=== PATIENT | male | born 1985 | race African-American/Black ===

== ENCOUNTER 2017-10-22 09:02 | Inpatient (IN) | payer OTHER ==
[2017-10-22 09:44] VITALS: BMI 29.2
--- NOTE | 2017-10-22 10:57 | HP ---
CIWA Score - CIWA Score Nausea/Vomitin Muscle Tremors: 3 Anxiety: 3 Agitation: 3 Paroxysmal Sweats: 3 Orientation: 0-Oriented Tacttile Disturbances: 2-Mild Itch/Numbness/Burn Auditory Disturbances: 0-None Visual Disturbances: 0-None Headache: 1-Very Mild CIWA-Ar Total Score: 18 Admission ROS BHS - HPI Chief Complaint: "I am trying to get help for this alcohol situation" Allergies/Adverse Reactions: Allergies Allergy/AdvReac Type Severity Reaction Status Date / Time No Known Allergies Allergy Verified 10/22/17 09:53 History of Present Illness: Pt is a 32 y/o male with a long history of alcohol addiction presents today for help detox. This is first's visit to [facility] but has been in previous detox centers. Endorses a one yr sober period in 2013 when he was in a treatment program. Pt came today from [facility] where he was seen for alcohol related issues. Pt has a hx of depression, anxiety, panic d/o, insomnia for which he states he sees a psychiatrist and is on meds, although he has not had the meds since August. Denies past SI/attemt, currently denies same. Exam Limitations: No Limitations - Ebola screening Have you traveled outside of the country in the last 21 days: No (N) Have you had contact with anyone from an Ebola affected area: No Have you been sick,other than usual withdrawal symptoms: No Do you have a fever: No - Review of Systems Constitutional: Chills, Diaphoresis, Loss of Appetite, Changes in sleep, Unintentional Wgt. Loss EENT: reports: No Symptoms Reported Respiratory: reports: Shortness of Breath (No use of accessory muscles, making complete sentences at this time.) Cardiac: reports: Lightheadedness GI: reports: Nausea, Poor Appetite : reports: No Symptoms Reported Musculoskeletal: reports: No Symptoms Reported Integumentary: reports: No Symptoms Reported Neuro: reports: Headache (slight) Endocrine: reports: Unexplained Weight Loss Hematology: reports: No Symptoms Reported Psychiatric: reports: Mood/Affect Appropiate, Orientated x3 Other Systems: Reviewed and Negative Patient History - Patient Medical History Hx Anemia: No Hx Asthma: No Hx Chronic Obstructive Pulmonary Disease (COPD): No Hx Cancer: No Hx Cardiac Disorders: No Hx Congestive Heart Failure: No Hx Hypertension: No Hx Hypercholesterolemia: No Hx Pacemaker: No HX Cerebrovascular Accident: No Hx Seizures: No (Not sure he had) Hx Dementia: No Hx Diabetes: No Hx Gastrointestinal Disorders: No Hx Liver Disease: No Hx Genitourinary Disorders: No Hx Sexually Transmitted Disorders: Yes (CHLAMYDIA TREATED 2015) Hx Renal Disease (ESRD): No Hx Thyroid Disease: No Hx Human Immunodeficiency Virus (HIV): No Hx Hepatitis C: No Hx Depression: Yes Hx Suicide Attempt: No Hx Schizophrenia: No - Patient Surgical History Past Surgical History: No Hx Neurologic Surgery: No Hx Cataract Extraction: No Hx Cardiac Surgery: No Hx Lung Surgery: No Hx Breast Surgery: No Hx Breast Biopsy: No Hx Abdominal Surgery: No Hx Appendectomy: No Hx Cholecystectomy: No Hx Genitourinary Surgery: No Hx Section: No Hx Orthopedic Surgery: Yes (B/L FOOT SURGERY 2013) Hx Hysterectomy: No Anesthesia Reaction: No - PPD History Previous Implant?: Yes Documented Results: Negative w/o proof Implanted On Prior R Admission?: No Date: 10/22/17 PPD to be Administered?: Yes - Reproductive History Patient is a Female of Child Bearing Age (11 -55 yrs old): No - Smoking Cessation Smoking history: Current every day smoker Have you smoked in the past 12 months: Yes Aproximately how many cigarettes per day: 10 Hx Chewing Tobacco Use: No Initiated information on smoking cessation: Yes 'Breaking Loose' booklet given: 10/22/17 - Substance & Tx. History Hx Alcohol Use: Yes Hx Substance Use: No Substance Use Type: Alcohol - Substances Abused Alcohol Route: Oral Frequency: 3-6 times per week Amount used: 4 pints of vodka Age of first use: 20 Date of Last Use: 10/21/17 Family Disease History - Family Disease History Family Disease History: Other: Father, Mother (Anemia, HYN), Sister (Asthma) Admission Physical Exam BHS - Vital Signs Vital Signs: Vital Signs - 24 hr 10/22/17 09:43 Temperature 97.9 F Pulse Rate 66 Respiratory 18 Rate Blood Pressure 129/95 - Physical General Appearance: Yes: Mild Distress HEENTM: Yes: Within Normal Limits Respiratory: Yes: No Respiratory Distress, No Accessory Muscle Use Neck: Yes: Within Normal Limits Breast: Yes: Breast Exam Deferred Cardiology: Yes: Regular Rhythm, Regular Rate Abdominal: Yes: Within Normal Limits, Non Tender, Soft Genitourinary: Yes: Within Normal Limits Back: Yes: Normal Inspection Musculoskeletal: Yes: full range of Motion, Gait Steady Extremities: Yes: Normal Capillary Refill, Normal Inspection Neurological: Yes: Within Normal Limits, Motor Strength 5/5 Integumentary: Yes: Within Normal Limits Lymphatic: Yes: Within Normal Limits - Diagnostic (1) Alcohol dependence with uncomplicated withdrawal Current Visit: Yes Status: Acute (2) Nicotine dependence Current Visit: Yes Status: Acute (3) Anxiety Current Visit: Yes Status: Acute Cleared for Admission [facility] - Detox or Rehab [facility] Level of Care: Medically Managed Detox Regimen/Protocol: Librium [facility] Breath Alcohol Content Breath Alcohol Content: 0 Urine Drug Screen - Results Drug Screen Negative: No Urine Drug Screen Results: BZO-Benzodiazepines
[2017-10-22] MEDS ORDERED: guaiFENesin/D-METHORPHAN HB 10 ML UNIT-DOSE CUPS PO PRN (11:21)
[2017-10-22] MEDS ORDERED: LOPERAMIDE HCL 2 MG CAPSULE PO PRN (11:21)
[2017-10-22] MEDS ORDERED: chlordiazePOXIDE HCL 25 MG CAPSULE PO PRN (11:21)
[2017-10-22] MEDS ORDERED: MAGNESIUM CITRATE 300 ML BOTTLE PO PRN (11:21)
[2017-10-22] MEDS ORDERED: IBUPROFEN 400 MG TABLET (FP) PO PRN (11:21)
[2017-10-22] MEDS ORDERED: MENTHOL/PHENOL 1 EACH UD MM PRN (11:21)
[2017-10-22] MEDS ORDERED: MAG HYDROX/AL HYDROX/SIMETH 30 ML UNIT-DOSE CUP PO PRN (11:21)
[2017-10-22] MEDS ORDERED: P-EPHED 60MG/TRIPROLIDI 2.5MG TABLET PO PRN (11:21)
[2017-10-22] MEDS ORDERED: ACETAMINOPHEN 325 MG TABLET (FP) PO PRN (11:21)
[2017-10-22] MEDS ORDERED: NICOTINE POLACRILEX 2 MG GUM BUC PRN (11:21)
[2017-10-22] MEDS ORDERED: MAGNESIUM HYDROX 2400MG/30ML ORAL SUSPENSION 30 ML CUP PO PRN (11:21)
[2017-10-22] MEDS ORDERED: hydrOXYzine PAMOATE 50 MG CAPSULE (FP) PO PRN (11:21)
--- NOTE | 2017-10-22 12:26 | PN ---
BHS Progress Note Note: Nicotine patch not ordered because pt stated he does not need it.
[2017-10-22] MEDS: chlordiazePOXIDE HCL 25 MG CAPSULE PO SCH ×3 (12:43→22:15)
[2017-10-22 20:39] LABS: URINE APPEARANCE CLOUDY; URINE BILIRUBIN NEGATIVE (<2.0 mg/dL); URINE COLOR YELLOW; URINE GLUCOSE (UA) NEGATIVE (NEGATIVE); URINE KETONE NEGATIVE (NEGATIVE); URINE LEUK ESTERASE NEGATIVE (NEGATIVE); URINE NITRITE NEGATIVE (NEGATIVE); URINE PROTEIN NEGATIVE (NEGATIVE)
[2017-10-22] MEDS ORDERED: MELATONIN 5 MG TABLETS PO PRN (22:00)
[2017-10-22] MEDS: THIAMINE HCL 100 MG TABLET (FP) PO SCH (22:15)
[2017-10-23] MEDS: chlordiazePOXIDE HCL 25 MG CAPSULE PO SCH ×4 (06:01→22:11)
[2017-10-23 10:16] LABS: HEMATOCRIT 37.8 % (35.4-49); HEMOGLOBIN 12.3 GM/dL (11.7-16.9); MCH 31.5 pg (25.7-33.7); MCHC 32.7 g/dl (32.0-35.9); MEAN CELL VOLUME 96.4 fl (80-96); MEAN PLT VOLUME 8.2 fl (7.5-11.1); PLATELET COUNT 154 K/MM3 (134-434); RBC 3.92 M/mm3 (4.00-5.60); RDW 13.8 % (11.9-15.9); WHITE BLOOD COUNT 2.4 K/mm3 (4.0-10.0)
[2017-10-23] MEDS: PRENATAL VITAMINS W/ FOLIC ACID TABLET (FP) PO SCH (10:17)
[2017-10-23 11:05] LABS: ALBUMIN 3.1 g/dl (3.4-5.0); ANION GAP 9 MMOL/L (8-16); BLOOD UREA NITROGEN 9 mg/dL (7-18); CALCIUM 8.8 mg/dL (8.5-10.1); CHLORIDE 105 mmol/L (98-107); CO2 28 mmol/L (21-32); GLUCOSE,RANDOM 117 mg/dL (74-106); SGOT/AST 18 U/L (15-37); SGPT/ALT 23 U/L (12-78); SODIUM 142 mmol/L (136-145)
[2017-10-23 11:06] LABS: BILIRUBIN,TOTAL 0.6 mg/dL (0.2-1.0); TOT PROT 6.5 g/dl (6.4-8.2)
--- NOTE | 2017-10-23 11:06 | PN ---
[facility] CIWA - CIWA Score Nausea/Vomitin-No Nausea/No Vomiting Muscle Tremors: 4-Moderate,w/Arms Extend Anxiety: 4-Mod. Anxious/Guarded Agitation: 4-Moderately Restless Paroxysmal Sweats: 1-Minimal Palms Moist Orientation: 0-Oriented Tacttile Disturbances: 0-None Auditory Disturbances: 0-None Visual Disturbances: 0-None Headache: 0-None Present CIWA-Ar Total Score: 13 S Progress Note (SOAP) Subjective: ANXIETY,SWEATS/CHILLS, FATIGUE. Objective: 10/23/17 11:06 Vital Signs 10/23/17 10/23/17 10/23/17 03:30 05:57 09:15 Temperature 97.0 F L 98.6 F Pulse Rate 69 57 L Respiratory 18 18 18 Rate Blood Pressure 104/72 101/71 Laboratory Tests 10/22/17 10/23/17 15:42 07:00 WBC 2.4 L RBC 3.92 L Hgb 12.3 Hct 37.8 MCV 96.4 H MCH 31.5 MCHC 32.7 RDW 13.8 Plt Count 154 MPV 8.2 Urine Color Yellow Urine Appearance Cloudy Urine pH 7.0 Ur Specific [place] 1.016 Urine Protein Negative Urine Glucose (UA) Negative Urine Ketones Negative Urine Blood Negative Urine Nitrite Negative Urine Bilirubin Negative Urine Urobilinogen 2.0 Ur Leukocyte Esterase Negative OTHER LABS PENDING Assessment: 10/23/17 11:06 WITHDRAWAL SX Plan: CONTINUE DETOX INCREASE PO FLUIDS
[2017-10-23 11:10] LABS: ALK PHOS 31 U/L (45-117); CREATININE 0.7 mg/dL (0.7-1.3)
--- NOTE | 2017-10-23 16:33 | EKG ---
Test Reason : Blood Pressure : / mmHG Vent. Rate : 058 BPM Atrial Rate : 058 BPM P-R Int : 112 ms QRS Dur : 092 ms QT Int : 454 ms P-R-T Axes : 024 030 012 degrees QTc Int : 445 ms SINUS BRADYCARDIA T WAVE ABNORMALITY, CONSIDER ANTERIOR ISCHEMIA ABNORMAL ECG NO PREVIOUS ECGS AVAILABLE Confirmed by Kaushal Natarajan ([id number]) on 10/23/2017 4:32:51 PM Referred By: Confirmed By:Kaushal Natarajan
--- NOTE | 2017-10-23 17:51 | CONSULT ---
[facility] Psychiatric Consult - Data Date of interview: 10/23/17 Admission source: [facility] Identifying data: [facility] admission [facility] for this 32 y/o AA male, self- referred for detoxification treatment (alcohol dependence).Patient is single,a father of two,homeless,unemployed (lost his job two weeks ago) and currently without income. Substance Abuse History: Confirmed by the patient in this sesion.Details in current [facility] report : Smoking history: Current every day smoker. Have you smoked in the past 12 months: Yes. Aproximately how many cigarettes per day: 10. Hx Chewing Tobacco Use: No. Initiated information on smoking cessation: Yes. 'Breaking Loose' booklet given: 10/22/17. - Substance & Tx. History. Hx Alcohol Use: Yes. Hx Substance Use: No. Substance Use Type: Alcohol. - Substances Abused. Alcohol. Route: Oral. Frequency: 3-6 times per week. Amount used: 4 pints of vodka. Age of first use: 20. Date of Last Use: Medical History: No report of medical problems. Psychiatric History: Patient denies history of psychiatric hospitalizations.Diagnosed with MDD and Anxiety Disorder.Mr Иван hackett used to attend the [facility] in the [place] (2008).He is currently seeing a psychiatrist in [facility] for therapy + medication management ( klonopin and sertraline 150 mg/day).Has not taken medications (reporytedly stolen) for past four weeks because he lost his belongings (patient resides in shelters).Patient denies history of suicide attempts. Physical/Sexual Abuse/Trauma History: Heavy social stressors : legal difficulties,being on probation,estrangement for relatives,loss of employment, homelessness,lack of marketable vocational skills and absence of a support network. Additional Comment: Urine Drug Screen Results: BZO-Benzodiazepines.Noted. Mental Status Exam - Mental Status Exam Alert and Oriented to: Time, Place, Person Cognitive Function: Good Patient Appearance: Well Groomed (noted scar on right cheek) Mood: Sad, Withdrawn, Anxious, Apprehensive Affect: Appropriate Patient Behavior: Fatigued, Appropriate, Cooperative Speech Pattern: Clear Voice Loudness: Normal Thought Process: Intact, Goal Oriented Thought Disorder: Not Present Hallucinations: Denies Suicidal Ideation: Denies Homicidal Ideation: Denies Insight/Judgement: Fair Sleep: Fair Appetite: Good Muscle strength/Tone: Normal Gait/Station: Normal Psychiatric Findings - Problem List ([place] 1, 2,3) (1) Alcohol dependence with uncomplicated withdrawal Current Visit: Yes Status: Acute (2) Nicotine dependence Current Visit: Yes Status: Acute Qualifiers: Nicotine product type: cigarettes Substance use status: in withdrawal Qualified Code(s): F17.213 - Nicotine dependence, cigarettes, with withdrawal (3) Substance induced mood disorder Current Visit: Yes Status: Acute (4) Depressive disorder Current Visit: Yes Status: Chronic Comment: Self-report. (5) Insomnia Current Visit: Yes Status: Acute - Initial Treatment Plan Initial Treatment Plan: Psychoeducation.Sleep hygiene.Detoxification in progress.Medications : zoloft 100 mg po daily + ambien 10 mg po hs prn.Side effects/benefits of both drugs are discussed with the patient.Made aware of the risk of sexual dysfunction,suicidal ideation and parasomnias.Mr Иван hackett insists on resuming sertraline and addressing his insomnia.Agrees to the proposed plan of care.Observation.
[2017-10-23] MEDS ORDERED: ZOLPIDEM TARTRATE 10 MG TABLET (PARK CARE ONLY) PO PRN (22:00)
[2017-10-23] MEDS: THIAMINE HCL 100 MG TABLET (FP) PO SCH (22:11)
[2017-10-24] MEDS: chlordiazePOXIDE HCL 25 MG CAPSULE PO SCH (05:34)
[2017-10-24 09:11] VITALS: BP 118/83; PULSE 60; TEMP 96.7
[2017-10-24] MEDS ORDERED: SERTRALINE HCL 50 MG TABLET (FP) PO SCH (10:00)
[2017-10-24] MEDS: PRENATAL VITAMINS W/ FOLIC ACID TABLET (FP) PO SCH (10:17)
[2017-10-24] MEDS ORDERED: chlordiazePOXIDE 5 MG CAPSULE PO SCH (11:00)
--- NOTE | 2017-10-24 12:17 | PN ---
[facility] Progress Note Note: PT DECLINED TO CONTINUE WITH DETOX FOR PERSONAL REASONS STATING HE HAS TO GO TO COURT IN THE MORNING. ALERT O X 3. NAD. ALL EFFORTS TO ENCOURAGE TREATMENT WAS UNSUCCESSFUL. COUNSELOR ODALYS ADORNO SPOKE TO THE PATIENT RE: AFTERCARE REFERRAL. Vital Signs 10/24/17 10/24/17 06:25 09:10 Temperature 97.0 F L 96.7 F L Pulse Rate 68 60 Respiratory 18 18 Rate Blood Pressure 115/85 118/83 Laboratory Tests 10/22/17 10/23/17 10/23/17 15:42 07:00 07:00 WBC 2.4 L RBC 3.92 L Hgb 12.3 Hct 37.8 MCV 96.4 H MCH 31.5 MCHC 32.7 RDW 13.8 Plt Count 154 MPV 8.2 Sodium Potassium Chloride Carbon Dioxide Anion Gap BUN Creatinine Creat Clearance w eGFR Random Glucose Calcium Total Bilirubin AST ALT Alkaline Phosphatase Total Protein Albumin Urine Color Yellow Urine Appearance Cloudy Urine pH 7.0 Ur Specific [place] 1.016 Urine Protein Negative Urine Glucose (UA) Negative Urine Ketones Negative Urine Blood Negative Urine Nitrite Negative Urine Bilirubin Negative Urine Urobilinogen 2.0 Ur Leukocyte Esterase Negative RPR Titer HIV 1&2 Antibody Screen Negative HIV P24 Antigen Negative 10/23/17 10/23/17 07:00 07:00 WBC RBC Hgb Hct MCV MCH MCHC RDW Plt Count MPV Sodium 142 Potassium 4.0 Chloride 105 Carbon Dioxide 28 Anion Gap 9 BUN 9 Creatinine 0.7 Creat Clearance w eGFR > 60 Random Glucose 117 H Calcium 8.8 Total Bilirubin 0.6 AST 18 ALT 23 Alkaline Phosphatase 31 L Total Protein 6.5 Albumin 3.1 L Urine Color Urine Appearance Urine pH Ur Specific [place] Urine Protein Urine Glucose (UA) Urine Ketones Urine Blood Urine Nitrite Urine Bilirubin Urine Urobilinogen Ur Leukocyte Esterase RPR Titer Nonreactive HIV 1&2 Antibody Screen HIV P24 Antigen NAD PLAN: PT SIGNED OUT AMA
--- NOTE | 2017-10-24 12:19 | DS ---
[facility] Detox Discharge Summary Admission Date: 10/22/17 Discharge Date: 10/24/17 - History Present History: Alcohol Dependence Additional Comments: PT SIGNED OUT AMA. ALERT O X 3. NAD. Pertinent Past History: PLEASE SEE DX BELOW - Physical Exam Results Vital Signs: Vital Signs Temperature 96.7 F L 10/24/17 09:10 Pulse Rate 60 10/24/17 09:10 Respiratory Rate 18 10/24/17 09:10 Blood Pressure 118/83 10/24/17 09:10 O2 Sat by Pulse Oximetry (%) Pertinent Admission Physical Exam Findings: WITHDRAWAL SX Laboratory Tests 10/22/17 10/23/17 10/23/17 15:42 07:00 07:00 WBC 2.4 L RBC 3.92 L Hgb 12.3 Hct 37.8 MCV 96.4 H MCH 31.5 MCHC 32.7 RDW 13.8 Plt Count 154 MPV 8.2 Sodium Potassium Chloride Carbon Dioxide Anion Gap BUN Creatinine Creat Clearance w eGFR Random Glucose Calcium Total Bilirubin AST ALT Alkaline Phosphatase Total Protein Albumin Urine Color Yellow Urine Appearance Cloudy Urine pH 7.0 Ur Specific [place] 1.016 Urine Protein Negative Urine Glucose (UA) Negative Urine Ketones Negative Urine Blood Negative Urine Nitrite Negative Urine Bilirubin Negative Urine Urobilinogen 2.0 Ur Leukocyte Esterase Negative RPR Titer HIV 1&2 Antibody Screen Negative HIV P24 Antigen Negative 10/23/17 10/23/17 07:00 07:00 WBC RBC Hgb Hct MCV MCH MCHC RDW Plt Count MPV Sodium 142 Potassium 4.0 Chloride 105 Carbon Dioxide 28 Anion Gap 9 BUN 9 Creatinine 0.7 Creat Clearance w eGFR > 60 Random Glucose 117 H Calcium 8.8 Total Bilirubin 0.6 AST 18 ALT 23 Alkaline Phosphatase 31 L Total Protein 6.5 Albumin 3.1 L Urine Color Urine Appearance Urine pH Ur Specific [place] Urine Protein Urine Glucose (UA) Urine Ketones Urine Blood Urine Nitrite Urine Bilirubin Urine Urobilinogen Ur Leukocyte Esterase RPR Titer Nonreactive HIV 1&2 Antibody Screen HIV P24 Antigen - Treatment Hospital Course: Discharged Condition Good - Medication Discharge Medications: Ambulatory Orders Sertraline HCl [Zoloft -] 150 mg PO DAILY 10/22/17 clonazePAM [Klonopin -] 0.5 mg PO TID 10/22/17 - Diagnosis (1) Alcohol dependence with uncomplicated withdrawal Status: Acute (2) Nicotine dependence Status: Acute Qualifiers: Nicotine product type: cigarettes Substance use status: in withdrawal Qualified Code(s): F17.213 - Nicotine dependence, cigarettes, with withdrawal - AMA Did Patient Leave Against Medical Advice: Yes (AMA)
[2017-10-24] MEDS ORDERED: chlordiazePOXIDE HCL 10 MG CAPSULE PO SCH (23:00)
[2017-10-25] MEDS ORDERED: chlordiazePOXIDE HCL 10 MG CAPSULE PO SCH (11:00)
== END 2017-10-24 12:01 | disposition left against medical advice (07) | DRG 770 ==
LOC: YASAS 09:02 → Y3N 12:01
PROC: HZ2ZZZZ Detoxification Services for Substance Abuse Treatment (ICD-10-PCS; principal; 2017-10-22)
DX: F10.230 Alcohol dependence with withdrawal, uncomplicated (principal); F17.210 Nicotine dependence, cigarettes, uncomplicated; F19.24 Other psychoactive substance dependence with psychoactive substance-induced mood disorder; F33.9 Major depressive disorder, recurrent, unspecified; F41.9 Anxiety disorder, unspecified; G47.00 Insomnia, unspecified; Z86.19 Personal history of other infectious and parasitic diseases
CPT/HCPCS: 36415; 80053; 81003; 85027; 86593; 87389; 93005; 93010

== ENCOUNTER 2017-11-30 09:43 | Inpatient (IN) | payer OTHER ==
[2017-11-30 10:24] VITALS: BMI 29.1
--- NOTE | 2017-11-30 11:01 | HP ---
CIWA Score - CIWA Score Nausea/Vomitin Muscle Tremors: 2 Anxiety: 2 Agitation: 2 Paroxysmal Sweats: 1-Minimal Palms Moist Orientation: 0-Oriented Tacttile Disturbances: 1-Very Mild Itch/Numbness Auditory Disturbances: 1-Very Mild Visual Disturbances: 1-Very Mild Sensitivity Headache: 2-Mild CIWA-Ar Total Score: 14 Admission ROS BHS - HPI Chief Complaint: i need help to stop drinking alcohol Allergies/Adverse Reactions: Allergies Allergy/AdvReac Type Severity Reaction Status Date / Time No Known Allergies Allergy Verified 11/30/17 10:29 History of Present Illness: this 32 years old male with alcohol dependence,seeking detox,on probation,seen at [facility] last night, black out anxiety,depression,panic attack refer from [facility] for detox longest period of sobriety 6 months fx left jaw fx of right knee at age of 10 years fx of 2nd digit,4th digit,5th digit in 2013 last detox 10/22/17 to 10/24/17 not completed Exam Limitations: No Limitations - Ebola screening Have you traveled outside of the country in the last 21 days: No Have you had contact with anyone from an Ebola affected area: No Have you been sick,other than usual withdrawal symptoms: No Do you have a fever: No - Review of Systems Constitutional: Loss of Appetite, Malaise, Night Sweats, Changes in sleep, Weakness EENT: reports: Nose Congestion Respiratory: reports: No Symptoms reported Cardiac: reports: No Symptoms Reported GI: reports: Nausea, Abdominal cramping : reports: No Symptoms Reported Musculoskeletal: reports: Back Pain, Muscle Pain Neuro: reports: No Symptoms reported Endocrine: reports: No Symptoms Reported Hematology: reports: No Symptoms Reported Psychiatric: reports: No Sypmtoms Reported, Judgement Intact, Mood/Affect Appropiate, Orientated x3, Depressed Patient History - Patient Medical History Hx Anemia: No Hx Asthma: No Hx Chronic Obstructive Pulmonary Disease (COPD): No Hx Cancer: No Hx Cardiac Disorders: No Hx Congestive Heart Failure: No Hx Hypertension: No Hx Hypercholesterolemia: No Hx Pacemaker: No HX Cerebrovascular Accident: No Hx Seizures: No Hx Dementia: No Hx Diabetes: No Hx Gastrointestinal Disorders: No Hx Liver Disease: No Hx Genitourinary Disorders: No Hx Sexually Transmitted Disorders: Yes (Pt was tx chlamydia.) Hx Renal Disease (ESRD): No Hx Thyroid Disease: No Hx Human Immunodeficiency Virus (HIV): No (11/06 neative) Hx Hepatitis C: No Hx Depression: Yes Hx Suicide Attempt: No Hx Bipolar Disorder: No Hx Schizophrenia: No Other Medical History: no suicidal,no homicidal - Patient Surgical History Past Surgical History: No Hx Neurologic Surgery: No Hx Cataract Extraction: No Hx Cardiac Surgery: No Hx Lung Surgery: No Hx Breast Surgery: No Hx Breast Biopsy: No Hx Abdominal Surgery: No Hx Appendectomy: No Hx Cholecystectomy: No Hx Genitourinary Surgery: No Hx Section: No Hx Orthopedic Surgery: Yes (Sx 2nd 4th and 5th digit on L foot sx in 2013) Hx Hysterectomy: No Anesthesia Reaction: No - PPD History Previous Implant?: Yes Documented Results: Negative w/proof Implanted On Prior [facility] Admission?: Yes Date: 10/24/17 Results: 0 mm PPD to be Administered?: No - Smoking Cessation Smoking history: Current every day smoker Have you smoked in the past 12 months: Yes Aproximately how many cigarettes per day: 10 Hx Chewing Tobacco Use: No Initiated information on smoking cessation: Yes 'Breaking Loose' booklet given: 11/30/17 - Substance & Tx. History Hx Alcohol Use: Yes Hx Substance Use: No Substance Use Type: Alcohol Hx Substance Use Treatment: Yes ([facility] ) - Substances Abused Alcohol Route: Oral Frequency: Daily Amount used: 10 beers or 2 pints vodka Age of first use: 20 Date of Last Use: 11/29/17 Family Disease History - Family Disease History Family Disease History: Other: Father, Mother (Anemia, HYN), Sister (Asthma) Admission Physical Exam [facility] - Vital Signs Vital Signs: Vital Signs - 24 hr 11/30/17 10:20 Temperature 97.1 F L Pulse Rate 60 Respiratory 18 Rate Blood Pressure 118/79 - Physical General Appearance: Yes: Moderate Distress, Tremorous, Irritable, Anxious HEENTM: Yes: Normal ENT Inspection, RUSSELL, Pharynx Normal, Other (old fx left mandible) Respiratory: Yes: Within Normal Limits, Lungs Clear, Normal Breath Sounds Neck: Yes: Within Normal Limits, Supple, Trachea in good position Breast: Yes: Within Normal Limits Cardiology: Yes: Within Normal Limits, Regular Rhythm, Regular Rate, S1, S2 Abdominal: Yes: Normal Bowel Sounds, Non Tender, Soft, Organomegaly Genitourinary: Yes: Within Normal Limits Back: Yes: Muscle Spasm Extremities: Yes: Within Normal Limits, Normal Range of Motion, Tremors Neurological: Yes: fitness attendant II-XII NML intact, Alert, Motor Strength 5/5 Integumentary: Yes: Dry Lymphatic: Yes: Within Normal Limits - Diagnostic (1) Alcohol dependence with uncomplicated withdrawal Current Visit: No Status: Acute (2) Anxiety Current Visit: No Status: Acute (3) Insomnia Current Visit: No Status: Acute (4) Nicotine dependence Current Visit: No Status: Acute Qualifiers: Nicotine product type: cigarettes Substance use status: in withdrawal Qualified Code(s): F17.213 - Nicotine dependence, cigarettes, with withdrawal (5) Depression Current Visit: Yes Status: Acute Cleared for Admission [facility] - Detox or Rehab [facility] Level of Care: Medically Managed Detox Regimen/Protocol: Librium [facility] Breath Alcohol Content Breath Alcohol Content: 0 Urine Drug Screen - Results Drug Screen Negative: No Urine Drug Screen Results: BZO-Benzodiazepines
[2017-11-30] MEDS ORDERED: ACETAMINOPHEN 325 MG TABLET (FP) PO PRN (11:10)
[2017-11-30] MEDS ORDERED: MAGNESIUM HYDROX 2400MG/30ML ORAL SUSPENSION 30 ML CUP PO PRN (11:10)
[2017-11-30] MEDS ORDERED: P-EPHED 60MG/TRIPROLIDI 2.5MG TABLET PO PRN (11:10)
[2017-11-30] MEDS ORDERED: IBUPROFEN 400 MG TABLET (FP) PO PRN (11:10)
[2017-11-30] MEDS ORDERED: MAGNESIUM CITRATE 300 ML BOTTLE PO PRN (11:10)
[2017-11-30] MEDS ORDERED: MENTHOL/PHENOL 1 EACH UD MM PRN (11:10)
[2017-11-30] MEDS ORDERED: MAG HYDROX/AL HYDROX/SIMETH 30 ML UNIT-DOSE CUP PO PRN (11:10)
[2017-11-30] MEDS ORDERED: LOPERAMIDE HCL 2 MG CAPSULE PO PRN (11:10)
[2017-11-30] MEDS ORDERED: chlordiazePOXIDE HCL 25 MG CAPSULE PO PRN (11:10)
[2017-11-30] MEDS ORDERED: guaiFENesin/D-METHORPHAN HB 10 ML UNIT-DOSE CUPS PO PRN (11:10)
[2017-11-30] MEDS: chlordiazePOXIDE HCL 25 MG CAPSULE PO SCH ×2 (17:23→22:14)
[2017-11-30 18:15] LABS: URINE APPEARANCE CLEAR; URINE BILIRUBIN NEGATIVE (<2.0 mg/dL); URINE COLOR YELLOW; URINE GLUCOSE (UA) NEGATIVE (NEGATIVE); URINE KETONE NEGATIVE (NEGATIVE); URINE LEUK ESTERASE NEGATIVE (NEGATIVE); URINE NITRITE NEGATIVE (NEGATIVE); URINE PROTEIN NEGATIVE (NEGATIVE); URINE UROBILINOGEN NEGATIVE mg/dL (0.2-1.0)
[2017-11-30 18:27] LABS: URINE HYALINE CAST 1 /lpf; URINE MUCUS FEW
[2017-11-30] MEDS: THIAMINE HCL 100 MG TABLET (FP) PO SCH (22:14)
[2017-11-30] MEDS: MELATONIN 5 MG TABLETS PO PRN (22:15)
[2017-12-01] MEDS: chlordiazePOXIDE HCL 25 MG CAPSULE PO SCH ×4 (05:22→22:35)
[2017-12-01] MEDS: PRENATAL VITAMINS W/ FOLIC ACID TABLET (FP) PO SCH (10:48)
[2017-12-01 11:25] LABS: ALBUMIN 3.7 g/dl (3.4-5.0); ALK PHOS 37 U/L (45-117); ANION GAP 8 MMOL/L (8-16); BILIRUBIN,TOTAL 1.1 mg/dL (0.2-1); BLOOD UREA NITROGEN 10 mg/dL (7-18); CALCIUM 9.7 mg/dL (8.5-10.1); CHLORIDE 103 mmol/L (98-107); CO2 27 mmol/L (21-32); CREATININE 0.9 mg/dL (0.55-1.3); GLUCOSE,RANDOM 77 mg/dL (74-106); POTASSIUM 4.3 mmol/L (3.5-5.1); SGOT/AST 21 U/L (15-37); SGPT/ALT 27 U/L (13-61); SODIUM 138 mmol/L (136-145); TOT PROT 7.8 g/dl (6.4-8.2)
[2017-12-01 11:26] LABS: HEMATOCRIT 38.6 % (35.4-49); HEMOGLOBIN 13.2 GM/dL (11.7-16.9); MCH 32.5 pg (25.7-33.7); MCHC 34.2 g/dl (32.0-35.9); MEAN CELL VOLUME 94.9 fl (80-96); MEAN PLT VOLUME 7.8 fl (7.5-11.1); PLATELET COUNT 234 K/MM3 (134-434); RBC 4.07 M/mm3 (4.00-5.60); RDW 13.5 % (11.9-15.9); WHITE BLOOD COUNT 4.2 K/mm3 (4.0-10.0)
--- NOTE | 2017-12-01 13:49 | CONSULT ---
[facility] Psychiatric Consult - Data Date of interview: 12/01/17 Admission source: [facility] Identifying data: [facility]-admission to [facility] for this 32 y/o AA male, self- referred for detoxification treatment (alcohol dependence).Patient is single,a father of two,homeless,unemployed and supported on Public Assistance. Substance Abuse History: Smoking history: Current every day smoker. Have you smoked in the past 12 months: Yes. Aproximately how many cigarettes per day: 10. Hx Chewing Tobacco Use: No. Initiated information on smoking cessation: Yes. 'Breaking Loose' booklet given: 11/30/17. - Substance & Tx. History. Hx Alcohol Use: Yes. Hx Substance Use: No. Substance Use Type: Alcohol. Hx Substance Use Treatment: Yes ([facility] ). - Substances Abused. Alcohol. Route : Oral. Frequency: Daily. Amount used: 10 beers or 2 pints vodka. Age of first use: 20. Date of Last Use: 11/29/17 Medical History: Patient endorses good general health. History of treatment for chlamydia. Psychiatric History: No history of psychiatric hospitalizations.Diagnosed with MDD and Anxiety Disorder.Mr Иван hackett used to attend the [facility] in the [place] (2008). Patient sees a private psychiatrist in [facility] for therapy + medication management (klonopin and sertraline 150 mg/day) .Patient denies history of suicide attempts. Physical/Sexual Abuse/Trauma History: Patient denies. Additional Comment: Urine Drug Screen Results: BZO-Benzodiazepines.Noted. Mental Status Exam - Mental Status Exam Alert and Oriented to: Time, Place, Person Cognitive Function: Good Patient Appearance: Well Groomed Mood: Nervous, Withdrawn, Anxious Affect: Mood Congruent Patient Behavior: Fatigued, Cooperative Speech Pattern: Clear Voice Loudness: Normal Thought Process: Intact, Goal Oriented Thought Disorder: Not Present Hallucinations: Denies Suicidal Ideation: Denies Homicidal Ideation: Denies Insight/Judgement: Poor Sleep: Fair Appetite: Good Muscle strength/Tone: Normal Gait/Station: Normal Psychiatric Findings - Problem List ([place] 1, 2,3) (1) Alcohol dependence with uncomplicated withdrawal Current Visit: Yes Status: Acute (2) Nicotine dependence Current Visit: Yes Status: Acute Qualifiers: Nicotine product type: cigarettes Substance use status: in withdrawal Qualified Code(s): F17.213 - Nicotine dependence, cigarettes, with withdrawal (3) Substance induced mood disorder Current Visit: Yes Status: Acute (4) Depressive disorder Current Visit: Yes Status: Chronic Comment: Self-report. (5) Insomnia Current Visit: Yes Status: Acute - Initial Treatment Plan Initial Treatment Plan: Psychoeducation.Sleep hygiene.Detoxification in progress.Medications reconciled : sertraline 150 mg po daily + buspar 5 mg po tid.Side effecst/benefits of both drugs are discussed with the patient.insomnia is addressed with melatonin 5 mg po hs prn.Patient agrees to this careplan.Observation.
[2017-12-01] MEDS: busPIRone HCL 5 MG TABLET PO SCH ×2 (14:42→22:37)
--- NOTE | 2017-12-01 14:50 | PN ---
S CIWA - CIWA Score Nausea/Vomitin Muscle Tremors: 2 Anxiety: 2 Agitation: 2 Paroxysmal Sweats: 1-Minimal Palms Moist Orientation: 0-Oriented Tacttile Disturbances: 1-Very Mild Itch/Numbness Auditory Disturbances: 1-Very Mild Visual Disturbances: 1-Very Mild Sensitivity Headache: 2-Mild CIWA-Ar Total Score: 14 S Progress Note (SOAP) Subjective: alert,irritable,anxious,interrupted sleep,tremor Objective: 12/01/17 14:49 Vital Signs Temperature 97.8 F 12/01/17 11:11 Pulse Rate 60 12/01/17 11:11 Respiratory Rate 18 12/01/17 11:11 Blood Pressure 108/67 12/01/17 11:11 O2 Sat by Pulse Oximetry (%) Assessment: 12/01/17 14:49 withdrawal symptom Laboratory Last Values WBC 4.2 K/mm3 (4.0-10.0) 12/01/17 06:00 RBC 4.07 M/mm3 (4.00-5.60) 12/01/17 06:00 Hgb 13.2 GM/dL (11.7-16.9) 12/01/17 06:00 Hct 38.6 % (35.4-49) 12/01/17 06:00 MCV 94.9 fl (80-96) 12/01/17 06:00 MCH 32.5 pg (25.7-33.7) 12/01/17 06:00 MCHC 34.2 g/dl (32.0-35.9) 12/01/17 06:00 RDW 13.5 % (11.9-15.9) 12/01/17 06:00 Plt Count 234 K/MM3 (134-434) D 12/01/17 06:00 MPV 7.8 fl (7.5-11.1) 12/01/17 06:00 Sodium 138 mmol/L (136-145) 12/01/17 06:00 Potassium 4.3 mmol/L (3.5-5.1) 12/01/17 06:00 Chloride 103 mmol/L (98-107) 12/01/17 06:00 Carbon Dioxide 27 mmol/L (21-32) 12/01/17 06:00 Anion Gap 8 MMOL/L (8-16) 12/01/17 06:00 BUN 10 mg/dL (7-18) 12/01/17 06:00 Creatinine 0.9 mg/dL (0.55-1.3) 12/01/17 06:00 Creat Clearance w eGFR > 60 (>60) 12/01/17 06:00 Random Glucose 77 mg/dL (74-106) 12/01/17 06:00 Calcium 9.7 mg/dL (8.5-10.1) 12/01/17 06:00 Total Bilirubin 1.1 mg/dL (0.2-1) H 12/01/17 06:00 AST 21 U/L (15-37) 12/01/17 06:00 ALT 27 U/L (13-61) 12/01/17 06:00 Alkaline Phosphatase 37 U/L (45-117) L 12/01/17 06:00 Total Protein 7.8 g/dl (6.4-8.2) 12/01/17 06:00 Albumin 3.7 g/dl (3.4-5.0) 12/01/17 06:00 Urine Color Yellow 11/30/17 17:00 Urine Appearance Clear 11/30/17 17:00 Urine pH 5.0 (5.0-8.0) D 11/30/17 17:00 Ur Specific [place] 1.020 (1.010-1.035) 11/30/17 17:00 Urine Protein Negative (NEGATIVE) 11/30/17 17:00 Urine Glucose (UA) Negative (NEGATIVE) 11/30/17 17:00 Urine Ketones Negative (NEGATIVE) 11/30/17 17:00 Urine Blood 1+ (NEGATIVE) H 11/30/17 17:00 Urine Nitrite Negative (NEGATIVE) 11/30/17 17:00 Urine Bilirubin Negative (<2.0 mg/dL) 11/30/17 17:00 Urine Urobilinogen Negative mg/dL (0.2-1.0) 11/30/17 17:00 Ur Leukocyte Esterase Negative (NEGATIVE) 11/30/17 17:00 Urine WBC (Auto) 5 /hpf (3-5) 11/30/17 17:00 Urine RBC (Auto) None /hpf (0-3) 11/30/17 17:00 Hyaline Casts 1 /lpf 11/30/17 17:00 Urine Mucus Few 11/30/17 17:00 RPR Titer Nonreactive (NONREACTIVE) 12/01/17 06:00 HIV 1&2 Antibody Screen Negative 11/30/17 12:15 HIV P24 Antigen Negative 11/30/17 12:15 Plan: continue detox
[2017-12-01] MEDS: NICOTINE POLACRILEX 2 MG GUM BUC PRN (21:24)
[2017-12-01] MEDS: THIAMINE HCL 100 MG TABLET (FP) PO SCH (22:35)
[2017-12-01] MEDS: MELATONIN 5 MG TABLETS PO PRN (22:37)
[2017-12-02] MEDS: busPIRone HCL 5 MG TABLET PO SCH ×3 (05:40→22:13)
[2017-12-02] MEDS: chlordiazePOXIDE HCL 25 MG CAPSULE PO SCH ×2 (05:41→10:42)
[2017-12-02] MEDS: PRENATAL VITAMINS W/ FOLIC ACID TABLET (FP) PO SCH (10:42)
[2017-12-02] MEDS: SERTRALINE HCL 50 MG TABLET (FP) PO SCH (10:43)
--- NOTE | 2017-12-02 15:10 | PN ---
S CIWA - CIWA Score Nausea/Vomitin Muscle Tremors: 4-Moderate,w/Arms Extend Anxiety: 4-Mod. Anxious/Guarded Agitation: 4-Moderately Restless Paroxysmal Sweats: 3 Orientation: 0-Oriented Tacttile Disturbances: 0-None Auditory Disturbances: 0-None Visual Disturbances: 0-None Headache: 0-None Present CIWA-Ar Total Score: 17 B[facility] Progress Note (SOAP) Subjective: Tremor, interrupted sleep Objective: 12/02/17 15:08 Last Vital Signs Temp Pulse Resp BP Pulse Ox 98.1 F 70 20 124/72 12/02/17 14:07 12/02/17 14:07 12/02/17 14:07 12/02/17 14:07 Laboratory Tests 11/30/17 11/30/17 12/01/17 12:15 17:00 06:00 WBC 4.2 RBC 4.07 Hgb 13.2 Hct 38.6 MCV 94.9 MCH 32.5 MCHC 34.2 RDW 13.5 Plt Count 234 D MPV 7.8 Sodium Potassium Chloride Carbon Dioxide Anion Gap BUN Creatinine Creat Clearance w eGFR Random Glucose Calcium Total Bilirubin AST ALT Alkaline Phosphatase Total Protein Albumin Urine Color Yellow Urine Appearance Clear Urine pH 5.0 D Ur Specific [place] 1.020 Urine Protein Negative Urine Glucose (UA) Negative Urine Ketones Negative Urine Blood 1+ H Urine Nitrite Negative Urine Bilirubin Negative Urine Urobilinogen Negative Ur Leukocyte Esterase Negative Urine WBC (Auto) 5 Urine RBC (Auto) None Hyaline Casts 1 Urine Mucus Few RPR Titer HIV 1&2 Antibody Screen Negative HIV P24 Antigen Negative 12/01/17 12/01/17 06:00 06:00 WBC RBC Hgb Hct MCV MCH MCHC RDW Plt Count MPV Sodium 138 Potassium 4.3 Chloride 103 Carbon Dioxide 27 Anion Gap 8 BUN 10 Creatinine 0.9 Creat Clearance w eGFR > 60 Random Glucose 77 Calcium 9.7 Total Bilirubin 1.1 H AST 21 ALT 27 Alkaline Phosphatase 37 L Total Protein 7.8 Albumin 3.7 Urine Color Urine Appearance Urine pH Ur Specific [place] Urine Protein Urine Glucose (UA) Urine Ketones Urine Blood Urine Nitrite Urine Bilirubin Urine Urobilinogen Ur Leukocyte Esterase Urine WBC (Auto) Urine RBC (Auto) Hyaline Casts Urine Mucus RPR Titer Nonreactive HIV 1&2 Antibody Screen HIV P24 Antigen Labs reviewed; UA 1+ blood Assessment: 12/02/17 15:09 Withdrawal sxs Microscopic hematuria noted Plan: Continue detox Microscopic hematuria: encouraged PO water hydration, repeat UA
[2017-12-02] MEDS: NICOTINE POLACRILEX 2 MG GUM BUC PRN (17:31)
[2017-12-02] MEDS: chlordiazePOXIDE 5 MG CAPSULE PO SCH ×2 (17:31→22:13)
[2017-12-02] MEDS: MELATONIN 5 MG TABLETS PO PRN (22:13)
[2017-12-02] MEDS: THIAMINE HCL 100 MG TABLET (FP) PO SCH (22:13)
[2017-12-03] MEDS: chlordiazePOXIDE 5 MG CAPSULE PO SCH ×2 (05:26→10:39)
[2017-12-03] MEDS: busPIRone HCL 5 MG TABLET PO SCH ×3 (05:27→23:42)
[2017-12-03 10:17] LABS: URINE APPEARANCE CLEAR; URINE BILIRUBIN NEGATIVE (<2.0 mg/dL); URINE COLOR STRAW; URINE GLUCOSE (UA) NEGATIVE (NEGATIVE); URINE KETONE NEGATIVE (NEGATIVE); URINE LEUK ESTERASE NEGATIVE (NEGATIVE); URINE NITRITE NEGATIVE (NEGATIVE); URINE PROTEIN NEGATIVE (NEGATIVE); URINE UROBILINOGEN NEGATIVE mg/dL (0.2-1.0)
--- NOTE | 2017-12-03 10:18 | PN ---
[facility] Progress Note Note: Vital Signs Temperature 97.1 F L 12/03/17 09:17 Pulse Rate 68 12/03/17 09:17 Respiratory Rate 16 12/03/17 09:17 Blood Pressure 106/67 12/03/17 09:17 O2 Sat by Pulse Oximetry (%) Laboratory Last Values WBC 4.2 K/mm3 (4.0-10.0) 12/01/17 06:00 RBC 4.07 M/mm3 (4.00-5.60) 12/01/17 06:00 Hgb 13.2 GM/dL (11.7-16.9) 12/01/17 06:00 Hct 38.6 % (35.4-49) 12/01/17 06:00 MCV 94.9 fl (80-96) 12/01/17 06:00 MCH 32.5 pg (25.7-33.7) 12/01/17 06:00 MCHC 34.2 g/dl (32.0-35.9) 12/01/17 06:00 RDW 13.5 % (11.9-15.9) 12/01/17 06:00 Plt Count 234 K/MM3 (134-434) D 12/01/17 06:00 MPV 7.8 fl (7.5-11.1) 12/01/17 06:00 Sodium 138 mmol/L (136-145) 12/01/17 06:00 Potassium 4.3 mmol/L (3.5-5.1) 12/01/17 06:00 Chloride 103 mmol/L (98-107) 12/01/17 06:00 Carbon Dioxide 27 mmol/L (21-32) 12/01/17 06:00 Anion Gap 8 MMOL/L (8-16) 12/01/17 06:00 BUN 10 mg/dL (7-18) 12/01/17 06:00 Creatinine 0.9 mg/dL (0.55-1.3) 12/01/17 06:00 Creat Clearance w eGFR > 60 (>60) 12/01/17 06:00 Random Glucose 77 mg/dL (74-106) 12/01/17 06:00 Calcium 9.7 mg/dL (8.5-10.1) 12/01/17 06:00 Total Bilirubin 1.1 mg/dL (0.2-1) H 12/01/17 06:00 AST 21 U/L (15-37) 12/01/17 06:00 ALT 27 U/L (13-61) 12/01/17 06:00 Alkaline Phosphatase 37 U/L (45-117) L 12/01/17 06:00 Total Protein 7.8 g/dl (6.4-8.2) 12/01/17 06:00 Albumin 3.7 g/dl (3.4-5.0) 12/01/17 06:00 Urine Color Straw 12/03/17 06:17 Urine Appearance Clear 12/03/17 06:17 Urine pH 6.0 (5.0-8.0) 12/03/17 06:17 Ur Specific [place] 1.011 (1.010-1.035) 12/03/17 06:17 Urine Protein Negative (NEGATIVE) 12/03/17 06:17 Urine Glucose (UA) Negative (NEGATIVE) 12/03/17 06:17 Urine Ketones Negative (NEGATIVE) 12/03/17 06:17 Urine Blood Negative (NEGATIVE) 12/03/17 06:17 Urine Nitrite Negative (NEGATIVE) 12/03/17 06:17 Urine Bilirubin Negative (<2.0 mg/dL) 12/03/17 06:17 Urine Urobilinogen Negative mg/dL (0.2-1.0) 12/03/17 06:17 Ur Leukocyte Esterase Negative (NEGATIVE) 12/03/17 06:17 Urine WBC (Auto) 5 /hpf (3-5) 11/30/17 17:00 Urine RBC (Auto) None /hpf (0-3) 11/30/17 17:00 Hyaline Casts 1 /lpf 11/30/17 17:00 Urine Mucus Few 11/30/17 17:00 RPR Titer Nonreactive (NONREACTIVE) 12/01/17 06:00 HIV 1&2 Antibody Screen Negative 11/30/17 12:15 HIV P24 Antigen Negative 11/30/17 12:15 interrupted sleep , chills AOx3 no distress no adventitious breath sounds full ROM withdrawal sx increase fluids continue to monitor
[2017-12-03] MEDS: PRENATAL VITAMINS W/ FOLIC ACID TABLET (FP) PO SCH (10:39)
[2017-12-03] MEDS: SERTRALINE HCL 50 MG TABLET (FP) PO SCH (10:39)
[2017-12-03] MEDS: NICOTINE POLACRILEX 2 MG GUM BUC PRN (10:53)
[2017-12-03] MEDS: chlordiazePOXIDE HCL 10 MG CAPSULE PO SCH ×2 (17:20→23:02)
[2017-12-03] MEDS ORDERED: BACITRACIN 0.9 GM PACKET TP SCH (19:00)
--- NOTE | 2017-12-03 19:43 | PN ---
[facility] Progress Note Note: Vital Signs Temperature 96.9 F L 12/03/17 17:42 Pulse Rate 85 12/03/17 17:42 Respiratory Rate 18 12/03/17 17:42 Blood Pressure 135/81 12/03/17 17:42 O2 Sat by Pulse Oximetry (%) patient evaluate after he reported to [facility], yesterday that while he was squeezing water from his jeans in the sink, he accidentally scrape the skin on the palm side of his left finger. He later manually peeled more of the skin off. Denies pain, or drainage from the area. Patient AOx3 no distress no adventitious breath sounds + erythema on the (left) fourth finger palm area, + missing skin, no drainage present full ROM superficial skin lesion TP [place] gauze to area continue to monitor
[2017-12-03] MEDS ORDERED: SILVER SULFADIAZINE 1% TOP CREAM 50 GM JAR TP SCH (19:45)
[2017-12-03] MEDS: THIAMINE HCL 100 MG TABLET (FP) PO SCH (23:02)
[2017-12-03] MEDS: MELATONIN 5 MG TABLETS PO PRN (23:03)
[2017-12-04] MEDS: busPIRone HCL 5 MG TABLET PO SCH (05:53)
[2017-12-04] MEDS: chlordiazePOXIDE HCL 10 MG CAPSULE PO SCH (05:53)
[2017-12-04 06:29] VITALS: BP 101/66; PULSE 60; TEMP 96.6
--- NOTE | 2017-12-04 11:37 | DS ---
[facility] Detox Discharge Summary Admission Date: 11/30/17 Discharge Date: 12/04/17 - History Present History: Alcohol Dependence - Physical Exam Results Vital Signs: Vital Signs Temperature 96.6 F L 12/04/17 06:28 Pulse Rate 60 12/04/17 06:28 Respiratory Rate 18 12/04/17 06:28 Blood Pressure 101/66 12/04/17 06:28 O2 Sat by Pulse Oximetry (%) Pertinent Admission Physical Exam Findings: PATIENT TOLERATED DETOX REGIMEN WITHOUT ADVERSE EVENT. CLINICALLY STABLE. ALERT AND ORIENTED X 3. DENIES SI/HI. PATIENT ENCOURAGED TO CONTINUE OUTPATIENT GROUP MEETINGS TO PREVENT RELAPSE AND TO SEEK MEDICAL ATTENTION IF WITHDRAWAL SYMPTOMS OCCUR. D/C INSTRUCTIONS PROVIDED TO PATIENT BY STAFF. - Treatment Hospital Course: Detox Protocol Followed, Detoxed Safely, Responded well, Discharged Condition Good - Medication Discharge Medications: Ambulatory Orders Sertraline HCl [Zoloft -] 150 mg PO DAILY 10/22/17 clonazePAM [Klonopin -] 0.5 mg PO TID 10/22/17 Buspirone HCl [Buspar -] 5 mg PO TID 11/30/17 - AMA Did Patient Leave Against Medical Advice: No
== END 2017-12-04 09:18 | disposition home or self-care (01) | DRG 775 ==
LOC: YASAS 09:43 → Y3N 11:04
PROC: HZ2ZZZZ Detoxification Services for Substance Abuse Treatment (ICD-10-PCS; principal; 2017-11-30)
DX: F10.230 Alcohol dependence with withdrawal, uncomplicated (principal); F17.213 Nicotine dependence, cigarettes, with withdrawal; F32.9 Major depressive disorder, single episode, unspecified; F41.9 Anxiety disorder, unspecified; L98.9 Disorder of the skin and subcutaneous tissue, unspecified; G47.00 Insomnia, unspecified; Z87.438 Personal history of other diseases of male genital organs; X58.XXXA Exposure to other specified factors, initial encounter; Y93.E2 Activity, laundry; Y92.238 Other place in hospital as the place of occurrence of the external cause
CPT/HCPCS: 36415; 80053; 81003; 81015; 85027; 86593; 87389

== ENCOUNTER 2021-04-05 21:11 | Emergency (ER) | payer OTHER ==
[2021-04-05] MEDS ORDERED: HALOPERIDOL LACTATE 5 MG/ML ONE (21:18)
[2021-04-05] MEDS ORDERED: HALOPERIDOL LACTATE 5 MG/ML IM ONE (21:28)
[2021-04-05] MEDS ORDERED: LORazepam 2 MG/ML SDV VIAL IM ONE ×2 (21:30→21:49)
[2021-04-05 21:35] VITALS: BMI 32.3
[2021-04-06] MEDS ORDERED: LORazepam 2 MG/ML SDV VIAL IM ONE (10:35)
[2021-04-06 10:39] VITALS: BP 134/86; PULSE 103; TEMP 98.2
== END 2021-04-06 11:28 | disposition home or self-care (01) ==
LOC: JER 21:11
PROC: 3E023GC Introduction of Other Therapeutic Substance into Muscle, Percutaneous Approach (ICD-10-PCS; principal; 2021-04-05)
DX: F10.929 Alcohol use, unspecified with intoxication, unspecified (principal)
CPT/HCPCS: 70450-TC; 82962; 96372; 99284-25

== ENCOUNTER 2021-04-06 11:58 | Inpatient (IN) | payer OTHER ==
[2021-04-06] MEDS ORDERED: MAGNESIUM HYDROX 2400MG/30ML ORAL SUSPENSION 30 ML CUP PO PRN (12:49)
[2021-04-06] MEDS ORDERED: MAGNESIUM CITRATE 300 ML BOTTLE PO PRN (12:49)
[2021-04-06] MEDS ORDERED: LOPERAMIDE HCL 2 MG CAPSULE PO PRN (12:49)
[2021-04-06] MEDS ORDERED: MAG HYDROX/AL HYDROX/SIMETH 30 ML UNIT-DOSE CUP PO PRN (12:49)
[2021-04-06] MEDS ORDERED: MENTHOL/PHENOL 1 EACH UD MM PRN (12:49)
[2021-04-06] MEDS ORDERED: BISMUTH SUBSALICYLATE 262 MG/15 ML BTL PO PRN (12:49)
[2021-04-06] MEDS ORDERED: ACETAMINOPHEN 325 MG TABLET (FP) PO PRN ×2 (12:49)
[2021-04-06] MEDS ORDERED: ONDANSETRON *ODT* 4 MG TABLET SL PRN (12:49)
[2021-04-06] MEDS ORDERED: LORazepam 1 MG TABLET PO PRN (12:49)
[2021-04-06 13:58] VITALS: BMI 32.5
[2021-04-06] MEDS ORDERED: LORazepam 2 MG TABLET ONE (14:23)
[2021-04-06] MEDS: LORazepam 2 MG TABLET PO SCH ×3 (14:49→23:38)
[2021-04-06] MEDS ORDERED: hydrOXYzine PAMOATE 25 MG CAPSULE (FP) PO ONE (15:14)
[2021-04-06] MEDS: PRENATAL VITAMINS W/ FOLIC ACID TABLET (FP) PO SCH (15:59)
[2021-04-06] MEDS: NICOTINE 14 MG/24 HOURS TOPICAL PATCH TD SCH (15:59)
[2021-04-06] MEDS: hydrOXYzine PAMOATE 25 MG CAPSULE (FP) PO SCH ×3 (16:01→22:39)
[2021-04-06 18:11] LABS: HEMATOCRIT 38.1 % (35.4-49); HEMOGLOBIN 13.1 GM/dL (11.7-16.9); MCHC 34.3 g/dl (32.0-35.9); MEAN CELL VOLUME 93.3 fl (80-96); PLATELET COUNT 216 10^3/uL (134-434); RBC 4.09 M/mm3 (4.00-5.60); WHITE BLOOD COUNT 5.4 K/mm3 (4.0-10.0)
[2021-04-06 18:12] LABS: CALCIUM 8.4 mg/dL (8.5-10.1)
[2021-04-06 18:13] LABS: ALBUMIN 3.9 g/dl (3.4-5.0); BLOOD UREA NITROGEN 7.9 mg/dL (7-18)
[2021-04-06 18:16] LABS: CREATININE 0.9 mg/dL (0.55-1.3)
[2021-04-06 18:18] LABS: BILIRUBIN,TOTAL 0.8 mg/dL (0.2-1); TOT PROT 7.7 g/dl (6.4-8.2)
[2021-04-06] MEDS: METHOCARBAMOL 500 MG TABLET PO PRN (18:26)
[2021-04-06] MEDS: MELATONIN 5 MG TABLETS PO SCH (22:38)
[2021-04-06] MEDS: THIAMINE HCL 100 MG TABLET (FP) PO SCH (22:39)
[2021-04-07] MEDS: hydrOXYzine PAMOATE 25 MG CAPSULE (FP) PO SCH ×5 (05:27→22:26)
[2021-04-07] MEDS: LORazepam 2 MG TABLET PO SCH ×4 (05:28→22:26)
[2021-04-07] MEDS: NICOTINE 14 MG/24 HOURS TOPICAL PATCH TD SCH (10:29)
[2021-04-07] MEDS: PRENATAL VITAMINS W/ FOLIC ACID TABLET (FP) PO SCH (10:29)
[2021-04-07] MEDS ORDERED: POTASSIUM CHLORIDE ORAL LIQUID 20 MEQ/15 ML PO ONE ×3 (13:00→21:30)
[2021-04-07] MEDS: VENLAFAXINE HCL 150 MG E.R. CAPSULE PO SCH (13:31)
[2021-04-07] MEDS ORDERED: LORazepam 1 MG TABLET PO ONE (14:00)
[2021-04-07] MEDS: METHOCARBAMOL 500 MG TABLET PO PRN (18:32)
[2021-04-07] MEDS: THIAMINE HCL 100 MG TABLET (FP) PO SCH (22:26)
[2021-04-07] MEDS: MELATONIN 5 MG TABLETS PO SCH (22:26)
[2021-04-08] MEDS: LORazepam 1 MG TABLET PO SCH ×4 (06:15→22:18)
[2021-04-08] MEDS: hydrOXYzine PAMOATE 25 MG CAPSULE (FP) PO SCH ×5 (06:15→22:17)
[2021-04-08] MEDS: PRENATAL VITAMINS W/ FOLIC ACID TABLET (FP) PO SCH (10:17)
[2021-04-08] MEDS: METHOCARBAMOL 500 MG TABLET PO PRN (10:18)
[2021-04-08] MEDS: VENLAFAXINE HCL 150 MG E.R. CAPSULE PO SCH (10:20)
[2021-04-08] MEDS: NICOTINE 14 MG/24 HOURS TOPICAL PATCH TD SCH (10:22)
[2021-04-08 14:07] LABS: SARS-CoV-2 NAA Not Detected (Not Detected)
[2021-04-08] MEDS: MELATONIN 5 MG TABLETS PO SCH (22:17)
[2021-04-08] MEDS: THIAMINE HCL 100 MG TABLET (FP) PO SCH (22:17)
[2021-04-09] MEDS ORDERED: LORazepam 0.5 MG TABLET PO PRN
[2021-04-09] MEDS: hydrOXYzine PAMOATE 25 MG CAPSULE (FP) PO SCH ×5 (05:57→22:25)
[2021-04-09] MEDS: LORazepam 0.5 MG TABLET PO SCH ×4 (05:57→22:25)
[2021-04-09] MEDS: PRENATAL VITAMINS W/ FOLIC ACID TABLET (FP) PO SCH (10:40)
[2021-04-09] MEDS: METHOCARBAMOL 500 MG TABLET PO PRN ×2 (10:40→18:04)
[2021-04-09] MEDS: IBUPROFEN 400 MG TABLET (FP) PO PRN (10:42)
[2021-04-09] MEDS: NICOTINE 10 MG CARTRIDGE (INHALER) IH PRN ×4 (10:45→22:25)
[2021-04-09] MEDS: NICOTINE 14 MG/24 HOURS TOPICAL PATCH TD SCH (10:45)
[2021-04-09] MEDS: VENLAFAXINE HCL 150 MG E.R. CAPSULE PO SCH (13:53)
[2021-04-09] MEDS: MELATONIN 5 MG TABLETS PO SCH (22:25)
[2021-04-09] MEDS: THIAMINE HCL 100 MG TABLET (FP) PO SCH (22:25)
[2021-04-10] MEDS ORDERED: LORazepam 0.5 MG TABLET PO ONE (05:00)
[2021-04-10] MEDS: hydrOXYzine PAMOATE 25 MG CAPSULE (FP) PO SCH ×2 (06:00→10:40)
[2021-04-10] MEDS: IBUPROFEN 400 MG TABLET (FP) PO PRN (06:01)
[2021-04-10 10:04] VITALS: BP 121/77; PULSE 81; TEMP 97.3
[2021-04-10] MEDS: VENLAFAXINE HCL 150 MG E.R. CAPSULE PO SCH (10:37)
[2021-04-10] MEDS: PRENATAL VITAMINS W/ FOLIC ACID TABLET (FP) PO SCH (10:37)
[2021-04-10] MEDS: NICOTINE 14 MG/24 HOURS TOPICAL PATCH TD SCH (10:38)
== END 2021-04-10 11:39 | disposition home or self-care (01) | DRG 775 ==
LOC: YASAS 11:58 → Y6N 14:48
PROVIDERS: ADMIT Allergy & Immunology; ATTEND Allergy & Immunology
PROC: HZ2ZZZZ Detoxification Services for Substance Abuse Treatment (ICD-10-PCS; principal; 2021-04-06)
DX: F10.230 Alcohol dependence with withdrawal, uncomplicated (principal); F17.213 Nicotine dependence, cigarettes, with withdrawal; F10.24 Alcohol dependence with alcohol-induced mood disorder; F10.282 Alcohol dependence with alcohol-induced sleep disorder; F41.8 Other specified anxiety disorders; F32.A Depression, unspecified; Z62.810 Personal history of physical and sexual abuse in childhood
CPT/HCPCS: 36415; 80053; 82962; 84132; 85027; 86780; C9803; U0003; U0005